=== PATIENT | male | born 1955 | race Caucasian/White ===

== ENCOUNTER → 2019-12-16 11:04 | Outpatient (CLI) | payer OTHER, SELFPAY ==
[2019-12-17 15:23] LABS: COVID19 Sendout Not Detected (Not Detect)
== END ==
PROVIDERS: Visit Provider Registered Nurse
DX: Z01.812 Encounter for preprocedural laboratory examination (principal)
CPT/HCPCS: 87635

== ENCOUNTER → 2019-12-19 14:42 | Outpatient (CLI) | payer OTHER, SELFPAY ==
--- NOTE | 2019-12-26 15:59 | PM.PFT.1 ---
Pulmonary Function Test Referral & Results Date Patient Seen: 12/19/19 Requesting provider: Harsh Moore Results: The spirometry demonstrates an FVC of 3.05 L which is 59% of predicted. The FEV1 was measured at 1.30 L which is 33% of predicted. The FEV1/FVC ratio was 43 which is 57 of predicted. No bronchodilator was administered Lung volumes show an SVC of 2.87 L which is 56% of predicted. The diffusing capacity was measured at 14.67 which is 40% of predicted. No hemoglobin value was provided, so no correction for potential anemia could be made, if appropriate. The maximum voluntary ventilation was reduced Interpretation: This study demonstrates severe obstructive lung disease based on severe reduction FEV1 There is also moderate reduction in lung volumes suggesting moderate restrictive lung disease There is also moderately severe reduction in diffusing capacity suggesting significant disease at the capillary alveolar level
== END ==
PROVIDERS: Referring Provider Internal Medicine Pulmonary Disease; Visit Provider Internal Medicine Pulmonary Disease
DX: J44.9 Chronic obstructive pulmonary disease, unspecified (principal); R05 Cough; F17.200 Nicotine dependence, unspecified, uncomplicated
CPT/HCPCS: 94010; 94726; 94729